=== PATIENT | female | born 1950 | race Caucasian/White ===

== ENCOUNTER 2023-07-07 07:30 | Emergency (ER) | payer OTHER ==
[2023-07-07 07:56] VITALS: TEMP 97.9; BMI 23.6
[2023-07-07] MEDS ORDERED: MECLIZINE HCL 25 MG TABLET (FP) ONE (08:02)
[2023-07-07] MEDS ORDERED: ONDANSETRON 4 MG/2 ML VIAL ONE (08:02)
[2023-07-07] MEDS: MECLIZINE HCL 25 MG TABLET (FP) PO ONE (08:21)
[2023-07-07] MEDS: SODIUM CHLORIDE 0.9% 500 ML INFUS.BAG IV ONE (08:21)
[2023-07-07] MEDS: ONDANSETRON 4 MG/2 ML VIAL IVPB ONE (08:22)
[2023-07-07 08:26] LABS: BASO % 0.4 % (0-2.0); EOS % 0.5 % (0-4.5); HEMATOCRIT 40.5 % (32.4-45.2); HEMOGLOBIN 13.8 GM/dL (10.7-15.3); LYMPH % 17.1 % (8-40); MCH 28.4 pg (25.7-33.7); MEAN CELL VOLUME 83.5 fl (80-96); MEAN PLT VOLUME 10.6 fl (7.5-11.1); MONO % 4.2 % (3.8-10.2); NEUT % 77.8 % (42.8-82.8); PLATELET COUNT 164 10^3/uL (134-434); RBC 4.85 M/mm3 (3.60-5.2); RDW 13.4 % (11.6-15.6); WHITE BLOOD COUNT 6.8 K/mm3 (4.0-10.0)
[2023-07-07 08:57] LABS: POTASSIUM 3.7 mmol/L (3.5-5.1)
[2023-07-07 08:59] LABS: CALCIUM 9.3 mg/dL (8.5-10.1)
[2023-07-07 09:00] LABS: ALBUMIN 4.1 g/dl (3.4-5.0); BLOOD UREA NITROGEN 14.7 mg/dL (7-18); MAGNESIUM 2.2 mg/dL (1.8-2.4)
[2023-07-07 09:04] LABS: BILIRUBIN,TOTAL 0.7 mg/dL (0.2-1); TOT PROT 7.6 g/dl (6.4-8.2)
[2023-07-07 09:37] LABS: PH,URINE 7.5 (5.0-8.0); URINE APPEARANCE CLEAR; URINE BILIRUBIN NEGATIVE (NEGATIVE); URINE COLOR YELLOW; URINE GLUCOSE (UA) NEGATIVE (NEGATIVE); URINE KETONE NEGATIVE (NEGATIVE); URINE LEUK ESTERASE NEGATIVE (NEGATIVE); URINE NITRITE NEGATIVE (NEGATIVE); URINE PROTEIN NEGATIVE (NEGATIVE); URINE UROBILINOGEN 0.2 mg/dL (0.2-1.0)
[2023-07-07] MEDS ORDERED: METOCLOPRAMIDE HCL INJECTION 10 MG/2 ML VIAL ONE (10:16)
[2023-07-07] MEDS: METOCLOPRAMIDE HCL INJECTION 10 MG/2 ML VIAL IVPB ONE (10:25)
[2023-07-07 11:55] VITALS: BP 146/77; PULSE 110; RESP 15
== END 2023-07-07 12:10 | disposition home or self-care (01) ==
LOC: JER 07:30
PROC: 3E033GC Introduction of Other Therapeutic Substance into Peripheral Vein, Percutaneous Approach (ICD-10-PCS; principal; 2023-07-07)
PROC: 3E033GC Introduction of Other Therapeutic Substance into Peripheral Vein, Percutaneous Approach (ICD-10-PCS; 2023-07-07)
DX: R42 Dizziness and giddiness (principal); R11.0 Nausea; Z20.822 Contact with and (suspected) exposure to COVID-19
CPT/HCPCS: 0241U-QW; 36415; 80053; 81003; 83690; 83735; 84484; 85025; 87086; 93005; 93010; 99284-25

== ENCOUNTER 2023-11-30 17:44 | Emergency (ER) | payer OTHER ==
[2023-11-30 18:02] VITALS: BP 157/79; PULSE 91; RESP 16; TEMP 98; BMI 23.4
[2023-11-30] MEDS ORDERED: MECLIZINE HCL 25 MG TABLET (FP) ONE (20:39)
[2023-11-30] MEDS: MECLIZINE HCL 25 MG TABLET (FP) PO ONE (21:01)
[2023-11-30] MEDS: SODIUM CHLORIDE 0.9% 500 ML INFUS.BAG IV ONE (21:01)
[2023-11-30 21:43] LABS: POTASSIUM 3.8 mmol/L (3.5-5.1)
[2023-11-30 21:45] LABS: CALCIUM 9.8 mg/dL (8.5-10.1)
[2023-11-30 21:46] LABS: ALBUMIN 4.5 g/dl (3.4-5.0); BASO % 0.3 % (0-2.0); BLOOD UREA NITROGEN 11.1 mg/dL (7-18); EOS % 0.3 % (0-4.5); HEMATOCRIT 41.6 % (32.4-45.2); HEMOGLOBIN 13.6 GM/dL (10.7-15.3); LYMPH % 19.9 % (8-40); MCH 27.3 pg (25.7-33.7); MCHC 32.8 g/dl (32.0-36.0); MEAN CELL VOLUME 83.4 fl (80-96); MEAN PLT VOLUME 10.9 fl (7.5-11.1); MONO % 3.2 % (3.8-10.2); NEUT % 76.3 % (42.8-82.8); PLATELET COUNT 157 10^3/uL (134-434); RBC 4.99 M/mm3 (3.60-5.2); RDW 13.6 % (11.6-15.6); WHITE BLOOD COUNT 7.1 K/mm3 (4.0-10.0)
[2023-11-30 21:49] LABS: URINE APPEARANCE CLEAR; URINE BILIRUBIN NEGATIVE (NEGATIVE); URINE COLOR YELLOW; URINE GLUCOSE (UA) NEGATIVE (NEGATIVE); URINE KETONE NEGATIVE (NEGATIVE); URINE LEUK ESTERASE NEGATIVE (NEGATIVE); URINE NITRITE NEGATIVE (NEGATIVE); URINE PROTEIN NEGATIVE (NEGATIVE); URINE UROBILINOGEN 0.2 mg/dL (0.2-1.0)
[2023-11-30 21:49] LABS: CREATININE 0.9 mg/dL (0.55-1.3)
[2023-11-30 21:51] LABS: BILIRUBIN,TOTAL 2.2 mg/dL (0.2-1); TOT PROT 7.8 g/dl (6.4-8.2)
== END 2023-11-30 22:33 | disposition home or self-care (01) ==
LOC: MERGE 17:44 → JER 17:44
DX: R42 Dizziness and giddiness (principal); R51.9 Headache, unspecified; F41.9 Anxiety disorder, unspecified
CPT/HCPCS: 36415; 70450-TC; 80053; 81003; 84436; 84443; 84484; 85025; 93005; 93010; 99285-25

== ENCOUNTER 2024-04-07 09:45 | Day surgery (SDC) | payer OTHER ==
[2024-03-31 15:28] VITALS: BMI 22.4
[2024-04-07 13:02] VITALS: BP 109/67; PULSE 100; RESP 16; TEMP 97.3
== END 2024-04-07 11:25 | disposition home or self-care (01) ==
LOC: FASU-ENDO 09:45
PROVIDERS: ATTEND Internal Medicine Gastroenterology
PROC: 0DB78ZX Excision of Stomach, Pylorus, Via Natural or Artificial Opening Endoscopic, Diagnostic (ICD-10-PCS; 2024-04-07)
PROC: 0DB68ZX Excision of Stomach, Via Natural or Artificial Opening Endoscopic, Diagnostic (ICD-10-PCS; 2024-04-07)
PROC: 0DB98ZX Excision of Duodenum, Via Natural or Artificial Opening Endoscopic, Diagnostic (ICD-10-PCS; principal; 2024-04-07 10:18)
DX: D13.2 Benign neoplasm of duodenum (principal); K29.50 Unspecified chronic gastritis without bleeding; R11.0 Nausea; R63.4 Abnormal weight loss; Z87.19 Personal history of other diseases of the digestive system; Z68.22 Body mass index [BMI] 22.0-22.9, adult
CPT/HCPCS: 88305-TC